=== PATIENT | male | born 2000 ===

== ENCOUNTER → 2021-01-23 11:00 | Outpatient (BNVA) | payer SELFPAY | PROVIDERS: PCP Family Medicine; Visit Provider Internal Medicine | DX: R10.13 Epigastric pain (principal) | CPT/HCPCS: 80053; 84443; 85025; 85651 ==

== ENCOUNTER → 2021-01-29 12:51 | Outpatient (BNVA) | payer SELFPAY | PROVIDERS: PCP Family Medicine; Visit Provider Internal Medicine | DX: R10.13 Epigastric pain (principal) | CPT/HCPCS: 87635 ==

== ENCOUNTER 2021-02-01 08:56 | Day surgery (SDC) | payer SELFPAY ==
--- NOTE | 2021-02-01 09:14 | ANES.PREANE2 ---
Pre-Anesthetic Assessment Pre-Anesthetic Assessment: Height/Weight: Height 1.68 m Weight 51.71 kg Preop Diagnosis: epigastric pain Proposed Procedure: Operation Date: 02/01/21 10:30 Proposed Procedures p EGD 48862 R10.13(Not Applicable) - Suleiman Dubon MD Was Beta Casey taken within 24 hours: N/A Was Clonidine taken within 24 hours: N/A Social: Social History: No alcohol and No tobacco Exam: Pre-Anes Outpt Exam: alert, oriented x 3, clear to auscultation bilaterally and regular rate & rhythm Airway: Submandibular: WNL Cervical ROM: WNL MP: 2 Dentition: Full History/ROS: No significant history except as noted Anesthetic Plan: ASA status: 1 Anesthesia: MAC Risk of > 500 ml blood loss (7ml/kg in children): No PFSH Anesthesia PFSH: Family History (Updated 01/23/21 @ 10:[address]) Other Hypertension Stroke Social History (Updated 01/23/21 @ 10:[address]) Smoking and tobacco status: never smoked Alcohol intake: current Alcohol type: hard liquor Desire information about alcohol rehabilitation?: No Desire information about substance/drug rehabilitation?: No Counseling given: No Adopted: No Marital status: Single service: No Current occupational status: unemployed History of recent travel: No Data Anesthesia Cardiac Studies: No Data to Display
[2021-02-01 09:33] VITALS: BP 124/75; PULSE 96; RESP 18; O2SAT 99
--- NOTE | 2021-02-01 09:35 | W.PM.OPSFHP ---
Same Day Surgery H&P Indication for Procedure/HPI DATE OF PROCEDURE: February 01, 2021 CHIEF COMPLAINT/INDICATIONFOR SURGICAL PROCEDURE: Epigastric pain nausea and vomiting PREOP DIAGNOSIS: epigastric pain PLANNED PROCEDRUE: Operation Date: 02/01/21 10:30 Proposed Procedures p EGD 81660 R10.13(Not Applicable) - Suleiman Dubon MD Medications/Allergies* Home Medications Medication Instructions Recorded Confirmed Type No Known Home Medications 01/23/21 01/31/21 History Allergies/Adverse Reactions Allergy/AdvReac Type Severity Reaction Status Date / Time No Known Allergies Allergy Verified 01/23/21 10:17 Pertinent History/Comorbid Conditions* Family History (Updated 01/23/21 @ 10:22 by ANNABELLE Fernandes) Hypertension Stroke Social History Smoking and tobacco status: never smoked Alcohol intake: current Alcohol type: hard liquor Desire information about alcohol rehabilitation?: No Desire information about substance/drug rehabilitation?: No Counseling given: No Adopted: No Marital status: Single service: No Current occupational status: unemployed History of recent travel: No Pertinent Exam Findings alert, oriented x 3, clear to auscultation bilaterally, regular rate & rhythm, operative site marked and procedure specific exam findings Recommendations Surgery/Procedure today Coding Level of Care Code Acute 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
[2021-02-01] MEDS: sodium chloride 0.9% 1,000 ML 30 ML IV (09:39)
[2021-02-01 10:50] VITALS: BP 105/63; PULSE 75; RESP 12; TEMP 36.5; O2SAT 94
--- NOTE | 2021-02-01 10:52 | ANE.PACU2 ---
Inpatient post-anesthesia follow up: Airway intact: Yes Vital signs: Temperature 97.7 F Pulse Rate 75 Respiratory Rate 12 Blood Pressure 105/63 Pulse Oximetry 94 Oxygen Delivery Me thod Room Air Oxygen Flow Rate Fraction of Inspir ed Oxygen Hydration adequate: Yes Nausea and vomiting: No Pain level: 1 Mental status: Baseline
[2021-02-01 11:01] VITALS: BP 103/69; PULSE 73; RESP 18; O2SAT 94
== END 2021-02-01 11:08 | disposition home or self-care (01) ==
PROVIDERS: PCP Internal Medicine; Visit Provider Internal Medicine
PROC: 0DJ08ZZ Inspection of Upper Intestinal Tract, Via Natural or Artificial Opening Endoscopic (ICD-10-PCS; CPT 43235; principal; 2021-02-01 10:30)
DX: R10.13 Epigastric pain (principal); R11.2 Nausea with vomiting, unspecified; Z82.49 Family history of ischemic heart disease and other diseases of the circulatory system; Z82.3 Family history of stroke
CPT/HCPCS: 43235; 96360; J2704; J7030

== ENCOUNTER → 2021-04-30 12:38 | Outpatient (BNVA) | payer OTHER, SELFPAY | PROVIDERS: PCP Internal Medicine; Visit Provider Nurse Practitioner Family | DX: Z20.822 Contact with and (suspected) exposure to COVID-19 (principal); Z20.828 Contact with and (suspected) exposure to other viral communicable diseases | CPT/HCPCS: 87426; 87635 ==